=== PATIENT | female | born 1940 | race Caucasian/White ===

== ENCOUNTER → 2021-01-29 08:11 | Outpatient (REF) | payer MEDICARE, SELFPAY | LOC: ANHLAB 08:11 | PROVIDERS: Visit Provider Nurse Practitioner | DX: D49.2 Neoplasm of unspecified behavior of bone, soft tissue, and skin (principal) | CPT/HCPCS: 88305; 88342 ==

== ENCOUNTER → 2021-02-14 11:46 | Outpatient (REF) | payer MEDICARE, SELFPAY | LOC: ANHLAB 11:46 | PROVIDERS: Visit Provider Nurse Practitioner | DX: D03.62 Melanoma in situ of left upper limb, including shoulder (principal) | CPT/HCPCS: 88305; 88342 ==

== ENCOUNTER → 2021-02-26 13:14 | Outpatient (REF) | payer MEDICARE, SELFPAY | LOC: ANHLAB 13:14 | PROVIDERS: Visit Provider Nurse Practitioner | DX: C43.62 Malignant melanoma of left upper limb, including shoulder (principal) | CPT/HCPCS: 88305 ==

== ENCOUNTER → 2021-05-02 09:12 | Outpatient (REF) | payer MEDICARE, SELFPAY | LOC: ANHLAB 09:12 | PROVIDERS: PCP Family Medicine; Visit Provider Nurse Practitioner | DX: C44.622 Squamous cell carcinoma of skin of right upper limb, including shoulder (principal) | CPT/HCPCS: 88305 ==

== ENCOUNTER → 2021-05-27 09:00 | Outpatient (REF) | payer MEDICARE, SELFPAY | LOC: ANHLAB 09:00 | PROVIDERS: PCP Family Medicine; Visit Provider Nurse Practitioner | DX: C44.622 Squamous cell carcinoma of skin of right upper limb, including shoulder (principal) | CPT/HCPCS: 88305; 88331 ==

== ENCOUNTER 2021-11-21 13:00 | Outpatient (NON) | payer MEDICARE, SELFPAY | END 2021-11-21 13:01 | disposition home or self-care (01) | LOC: ANHLAB 11-22 08:18 | PROVIDERS: PCP Family Medicine; Visit Provider Nurse Practitioner | DX: D49.2 Neoplasm of unspecified behavior of bone, soft tissue, and skin (principal) | CPT/HCPCS: 88305; 88342 ==

== ENCOUNTER 2022-03-11 09:00 | Outpatient (NON) | payer MEDICARE, SELFPAY | END 2022-03-11 09:01 | disposition home or self-care (01) | LOC: ANHLAB 03-12 10:34 | PROVIDERS: PCP Family Medicine; Visit Provider Nurse Practitioner | DX: L73.8 Other specified follicular disorders (principal) | CPT/HCPCS: 88305 ==

== ENCOUNTER 2022-06-10 13:30 | Outpatient (NON) | payer MEDICARE, SELFPAY | END 2022-06-10 13:31 | disposition home or self-care (01) | PROVIDERS: PCP Family Medicine; Visit Provider Nurse Practitioner | DX: L72.8 Other follicular cysts of the skin and subcutaneous tissue (principal); L57.0 Actinic keratosis | CPT/HCPCS: 88305 ==

== ENCOUNTER 2022-09-16 14:15 | Outpatient (NON) | payer MEDICARE, SELFPAY | END 2022-09-16 14:16 | disposition home or self-care (01) | LOC: ANHLAB 09-17 14:17 | PROVIDERS: PCP Family Medicine; Visit Provider Nurse Practitioner | DX: D22.5 Melanocytic nevi of trunk (principal) | CPT/HCPCS: 88305 ==

== ENCOUNTER 2022-10-14 14:31 | Outpatient (NON) | payer MEDICARE, SELFPAY | END 2022-10-14 14:32 | disposition home or self-care (01) | LOC: ANHLAB 10-15 14:34 | PROVIDERS: PCP Family Medicine; Visit Provider Nurse Practitioner | DX: L90.5 Scar conditions and fibrosis of skin (principal) | CPT/HCPCS: 88305 ==